=== PATIENT | female | born 1980 | race Caucasian/White ===

== ENCOUNTER 2020-05-05 11:37 | Emergency (ER) | payer MEDICAID ==
[~2020-05-05] VITALS: Ht 167.6 cm; Wt 72.6 kg
--- NOTE | 2020-05-05 11:40 | NUR ---
Patient to ER bed H1 to gown for evaluation. Side rails up.
--- NOTE | 2020-05-05 11:42 | NUR ---
Pt brought by self, A&Ox4, pt presents to ER with facial numbness and tingling of the extremities, pt states she has been under a lot stress later , skin pink and warm, respirations even and unlabored, cap refill <3.
[2020-05-05 11:48] VITALS: BP_SYST 125
--- NOTE | 2020-05-05 12:20 | NUR ---
DR LYON EVALUATING PT IN [facility] CHAIR
[2020-05-05] MEDS ORDERED: NACL 0.9% 1,000 ML IV ONE (12:30)
[2020-05-05 12:51] LABS: BASOPHILS % (AUTO) 0.2 % (0.0-2.0); EOSINOPHILS % (AUTO) 0.8 % (0.0-4.0); HEMATOCRIT 43.3 % (36-48); HEMOGLOBIN 14.6 g/dL (12.0-16.0); LYMPHOCYTES # (AUTO) 0.8 K/uL (1.0-5.5); LYMPHOCYTES % (AUTO) 14.9 % (20.5-51.5); MEAN CORPUSCULAR HEMOGLOBIN 32 pg (27-31); MEAN CORPUSCULAR HGB CONC 34 % (32-36); MEAN CORPUSCULAR VOLUME 95 fL (79.0-98.0); MONOCYTES # (AUTO) 0.4 K/uL (0.0-1.0); MONOCYTES % (AUTO) 7.7 % (1.7-9.3); NEUTROPHILS % (AUTO) 76.4 % (40.0-70.0); PLATELET COUNT (AUTO) 244 K/uL (130-430); RED BLOOD CELL COUNT(AUTO) 4.54 MIL/uL (4.2-6.2); RED CELL DISTRIBUTION WIDTH 12.9 % (9.0-15.0); WHITE BLOOD COUNT (AUTO) 5.3 K/uL (4.8-10.8)
[2020-05-05 13:00] LABS: CALCIUM 8.1 mg/dL (8.4-11.0); CREATININE 0.81 mg/dL (0.55-1.30)
[2020-05-05 13:11] LABS: ALBUMIN 3.7 g/dL (3.4-4.8); TOTAL BILIRUBIN 0.5 mg/dL (0.0-1.0)
[2020-05-05 15:15] VITALS: BP_SYST 124
--- NOTE | 2020-05-05 15:15 | NUR ---
Patient given written and verbal discharge instructions and verbalizes understanding. ER MD discussed with patient the results and treatment provided. Patient in stable condition. ID arm band removed. IV catheter removed intact and dressing applied, no active bleeding. NO Rx given. Patient educated on pain management and to follow up with PMD. Pain Scale 2/10. Opportunity for questions provided and answered. Medication side effect fact sheet provided.
== END 2020-05-05 15:15 | disposition home or self-care (01) ==
LOC: SED 11:37
DX: F41.9 Anxiety disorder, unspecified (principal); R20.2 Paresthesia of skin; R42 Dizziness and giddiness
CPT/HCPCS: 36415; 80053; 84702; 85025; 93005; 96360; 99284; J7030